=== PATIENT | male | born 1970 | race Caucasian/White ===

== ENCOUNTER 2019-11-13 18:44 | Emergency (ER) | payer OTHER ==
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
[2019-11-13 18:52] VITALS: BP 160/93; PULSE 100; TEMP 98.2; BMI 28.8
[2019-11-13] MEDS ORDERED: KETOROLAC TROMETHAMINE 60 MG/2 ML VIAL IM ONE (20:41)
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
[2019-11-13] MEDS ORDERED: KETOROLAC TROMETHAMINE 60 MG/2 ML VIAL ONE (20:55)
== END 2019-11-13 21:20 | disposition home or self-care (01) ==
LOC: JERFT 18:44
CPT/HCPCS: 99281-25

== ENCOUNTER 2019-11-14 15:11 | Emergency (ER) | payer SELFPAY ==
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
[2019-11-14 15:29] VITALS: BP 131/80; PULSE 72; TEMP 98.2; BMI 28.8
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
== END 2019-11-14 16:45 | disposition home or self-care (01) ==
LOC: JERFT 15:11
DX: S16.1XXA Strain of muscle, fascia and tendon at neck level, initial encounter (principal); V49.3XXA Car occupant (driver) (passenger) injured in unspecified nontraffic accident, initial encounter; Y93.89 Activity, other specified; Y92.410 Unspecified street and highway as the place of occurrence of the external cause; F17.210 Nicotine dependence, cigarettes, uncomplicated; E11.9 Type 2 diabetes mellitus without complications
CPT/HCPCS: 99282-25

== ENCOUNTER 2023-01-04 09:33 | Emergency (ER) | payer BC ==
[2023-01-04 09:49] VITALS: BP 132/86; PULSE 90; RESP 20; TEMP 99.7; BMI 23.6
[2023-01-04] MEDS ORDERED: ONDANSETRON 4 MG TABLET PO ONE (11:07)
[2023-01-04] MEDS ORDERED: KETOROLAC TROMETHAMINE 15 MG/ML VIAL IVPUSH ONE (11:07)
[2023-01-04 11:29] LABS: BASO % 0.8 % (0-2.0); EOS % 0.1 % (0-4.5); LYMPH % 18.3 % (8-40); MCH 28.5 pg (25.7-33.7); MEAN CELL VOLUME 83.9 fl (80-96); MEAN PLT VOLUME 8.2 fl (7.5-11.1); NEUT % 70.8 % (42.8-82.8); PLATELET COUNT 367 10^3/uL (134-434); RDW 12.8 % (11.9-15.9); WHITE BLOOD COUNT 14.4 K/mm3 (4.0-10.0)
[2023-01-04 11:33] LABS: EPI CELLS 2 /uL (0-25.1); HYALINE CASTS 0 /uL (0-3.1); URINE APPEARANCE CLOUDY; URINE BACTERIA >9,000 /uL (0-1359); URINE BILIRUBIN NEGATIVE (NEGATIVE); URINE COLOR YELLOW; URINE GLUCOSE (UA) NEGATIVE (NEGATIVE); URINE KETONE NEGATIVE (NEGATIVE); URINE LEUK ESTERASE 3+ (NEGATIVE); URINE NITRITE POSITIVE (NEGATIVE); URINE PROTEIN 1+ (NEGATIVE); URINE RBC 37 /uL (0-23.9); URINE UROBILINOGEN 0.2 mg/dL (0.2-1.0); URINE WBC 2616 /uL (0-25.8)
[2023-01-04 11:59] LABS: ALBUMIN 3.6 g/dl (3.4-5.0); BLOOD UREA NITROGEN 9.7 mg/dL (7-18); CALCIUM 9.8 mg/dL (8.5-10.1)
[2023-01-04] MEDS ORDERED: KETOROLAC TROMETHAMINE 15 MG/ML VIAL ONE (12:01)
[2023-01-04] MEDS ORDERED: ONDANSETRON 4 MG/2 ML VIAL ONE (12:01)
[2023-01-04 12:02] LABS: CREATININE 0.7 mg/dL (0.55-1.3)
[2023-01-04 12:04] LABS: BILIRUBIN,TOTAL 0.6 mg/dL (0.2-1); TOT PROT 8.1 g/dl (6.4-8.2)
[2023-01-04] MEDS ORDERED: CEFTRIAXONE 1,000 MG in DEXTROSE 5%-WATER - 50 ML IVPB ONE (13:36)
[2023-01-04] MEDS ORDERED: CEFTRIAXONE 1 GM/50 ML BAG ONE (14:25)
== END 2023-01-04 15:50 | disposition home or self-care (01) ==
LOC: JER 09:33
PROC: 3E03329 Introduction of Other Anti-infective into Peripheral Vein, Percutaneous Approach (ICD-10-PCS; principal; 2023-01-04)
PROC: 3E0333Z Introduction of Anti-inflammatory into Peripheral Vein, Percutaneous Approach (ICD-10-PCS; 2023-01-04)
PROC: 3E033GC Introduction of Other Therapeutic Substance into Peripheral Vein, Percutaneous Approach (ICD-10-PCS; 2023-01-04)
DX: N39.0 Urinary tract infection, site not specified (principal); N20.0 Calculus of kidney
CPT/HCPCS: 0241U-QW; 36415; 71046-TC-FY; 74176-TC; 80053; 81003; 83690; 84484; 85025; 86850; 86900; 86901; 87086; 87186; 93005; 93010; 99285-25